=== PATIENT | female | born 2000 | race Caucasian/White ===

== ENCOUNTER 2022-08-11 16:02 | Inpatient (IN) ==
--- NOTE | 2022-08-11 16:41 | Emergency Department Note ---
Impression & Plan Depression with suicidal ideation, Suicide attempt by multiple drug overdose ED Provider Note Provider: Candido Jules MD DATE OF SERVICE: 08/11/2022 CHIEF COMPLAINT: Depression, suicidal thoughts HISTORY OF PRESENT ILLNESS: Patient is a 21-year-old presenting here today reporting worsening depression over the last week or 2. Presents with friend/roommate. Patient reports that they experienced suicidal thoughts and normally can talk to themselves down from this but did try 2 nights ago to take too many pills in an overdose attempt to end her life. Does have a history of burning himself in the summer. No history of inpatient psychiatric care in the past but has a counselor as well as psychiatrist that he sees virtually. 2 nights ago evidently took a bunch of medicines they had at home including [id number] potassium tablets that did cause some heartburn and abdominal discomfort. Took some alcohol with this. Denies any drug use otherwise. Roommate/friend found out and secured any other medicines as well as knives and since safety proved by their report the department. Given this episode however convinced the patient to come here for further evaluation and seek inpatient treatment. Patient reports that she is a history of dissociative disorders, PTSD, and anxiety among others. Has been taking her home medications including aripiprazole and duloxetine. Has a history of a cardiac ablation in the past for SVT. PAST MEDICAL HISTORY: As noted above MEDICATIONS: Reviewed home medications SOCIAL HISTORY: [employer] student, occasional alcohol use, denies drug use, smoker PHYSICAL EXAM: GENERAL: alert and oriented in no acute distress on bed tapping left foot appearing a bit anxious Head: normocephalic and atraumatic EYES: No injection, discharge or icterus. NECK: Trachea midline LUNGS: Airway patent. No retractions. Breath sounds clear with good air entry bilaterally. HEART: Regular rate and rhythm. No chest wall tenderness SKIN: Acyanotic, warm, dry EXTREMITIES: Without swelling, tenderness or deformity NEUROLOGICAL: No focal deficits. No aphasia. No facial droop or slurred speech. Ambulatory. EK bpm normal sinus rhythm with sinus arrhythmia. No PVC or PAC. No acute ST segment elevation or depression with a QTC of 394. Patient's laboratory studies reviewed. Differential includes Mood disorder, infection, hypoglycemia, electrolyte abnormalities, cardiac sources, intracerebral event, toxicologic, trauma, neurologic, as well as other pathologies. IMPRESSION/MEDICAL DECISION MAKING: Patient with mental health history but patient now with worsening depression anxiety and evidently tried an overdose 2 nights ago. No inpatient mental health history reported by the patient. She does not want us to contact family at this point. Took some [id number] potassium as well as other pills and alcohol 2 nights ago. Denies significant complaints at this time but is anxious. We will complete basic blood work and toxicology levels and EKG but doubt any significant toxidrome at this juncture given the amount of time. Blood work is reassuring without evidence of potassium elevation or interval abnormalities of significance on EKG. No salicylate, aspirin, or alcohol elevation noted either. Given this active attempted overdose and suicidal thoughts do believe she needs inpatient treatment and discussed this with the patient. Seen with case management here. Referrals to be made. Given a nicotine patch. Being evaluated by [facility] for possible inpatient psychiatric care. Patient voluntary for inpatient care at this time. DIAGNOSIS: Depression with suicidal ideation, overdose DISPOSITION: Signed out at the end of my shift pending inpatient placement. Past Med/Surg History Social History Smoking Status: Never smoker Preferred Language: Arabic Feels Safe at Home: Yes Gender Identity: Female Allergies Allergies Allergy/AdvReac Type Severity Reaction Status Date / Time bee venom protein (honey bee) Allergy Intermediate HIVES, Verified 02/27/22 01:56 EXTRA SWELLING AT SITES GRASS Allergy Intermediate Hives Uncoded 02/27/22 01:56 SEAFOOD Allergy Intermediate DIZZINESS, Uncoded 02/27/22 01:56 NAUSEA/VOMITING SUNSCREEN Allergy Intermediate RASH/HIVES Uncoded 02/27/22 01:56 Home Meds Home Medications Medication Instructions Recorded Confirmed aripiprazole 10 mg tablet 10 mg PO DAILY 08/11/22 08/11/22 duloxetine 30 mg capsule,delayed 30 mg PO BID 08/11/22 08/11/22 release sprinkle Results & Data (ED) Vital Signs Vital Signs - 24 hr 08/11/22 16:09 08/11/22 17:40 Temperature 36.5 C Temperature Source Temporal Artery Scan Pulse Rate 98 H Pulse Rate [Left Finger] 72 Pulse Rhythm [Left Finger] Regular Pulse Strength [Left Finger] Normal Respiratory Rate 16 18 Respiratory Effort / Characteristics Non-Labored Non-Labored Spontaneous Respiratory Depth Normal Normal Respiratory Pattern Regular Blood Pressure 116/62 Blood Pressure [Left Arm] 112/76 Blood Pressure Mean 80 Blood Pressure Mean [Left Arm] 88 Blood Pressure Position [Left Arm] Sitting Pulse Oximetry 100 98 Oxygen Delivery Method Room Air Room Air Sepsis Recent Fever Within 48 Hours No Sepsis New/Unexplained Change in Mental Status No Sepsis Action Taken by Nursing No Action Required Laboratory Data 08/11/22 16:45 08/11/22 16:45 Lab Results 08/11/22 08/11/22 08/11/22 Range/Units 16:45 16:45 16:45 WBC 5.07 (4.8-10.8) K/ul RBC 4.57 (3.93-5.22) M/uL Hgb 13.7 (12.0-16.0) g/dl Hct 40.2 (34.1-44.9) % MCV 88.0 (80.0-100.0) fL MCH 30.0 (25.0-34.0) pg MCHC 34.1 (32.0-36.0) g/dL RDW Std Deviation 39.2 (36.4-46.3) fL RDW Coeff of Erica 12.2 (11.5-14.5) % Plt Count 276 (130-400) K/uL MPV 9.6 (9.4-12.3) fL Immature Gran % (Auto) 0.2 % Neut % (Auto) 62.3 % Lymph % (Auto) 29.4 % [place] % (Auto) 6.5 % Eos % (Auto) 1.2 % Baso % (Auto) 0.4 % Neut # (Auto) 3.16 (1.4-6.5) K/uL Lymph # (Auto) 1.49 (1.2-3.4) K/uL [place] # (Auto) 0.33 (0.24-0.82) K/uL Eos # (Auto) 0.06 (0-0.50) K/uL Baso # (Auto) 0.02 (0-0.2) K/uL Immature Gran # (Auto) 0.01 (0.00-0.02) K/uL Sodium 138 (136-145) mmol/L Potassium 3.8 (3.5-5.1) mmol/L Chloride 104 (98-107) mmol/L Carbon Dioxide 26 (21-32) mmol/L Anion Gap 8 (3-11) BUN 11 (6-23) mg/dl Creatinine 0.67 (0.6-1.2) mg/dl Est Cr Clr Drug Dosing 124.3 ml/min Est GFR ( Amer) 146.7 ml/min Est GFR (Non-Af Amer) 126.5 ml/min BUN/Creatinine Ratio 16.4 (10-20) Glucose 102 H (70-99(Fasting)) mg/dl Calcium 9.4 (8.5-10.1) mg/dl Total Bilirubin 0.4 (0.2-1.0) mg/dl AST 13 (13-39) U/L ALT 7 (7-52) U/L Alkaline Phosphatase 67 (34-104) U/L Total Protein 7.5 (6.0-8.3) gm/dl Albumin 4.8 (3.4-5.0) gm/dl Globulin 2.7 (2.5-4.0) gm/dl Albumin/Globulin Ratio 1.8 (0.9-2) TSH 1.580 (0.300-4.500) uIu/ml HCG, Qual (Negative) Urine Color Urine Appearance (Clear) Urine pH (4.5-7.5) Ur Specific [place] (1.000-1.030) Urine Protein (Negative) Urine Glucose (UA) (Negative) Urine Ketones (Negative) Urine Blood (Negative) Urine Nitrite (Negative) Urine Bilirubin (Negative) Urine Urobilinogen (Negative) Ur Leukocyte Esterase (Negative) Urine WBC (Auto) (0-5) /hpf Urine RBC (Auto) (0-4) /hpf U Hyaline Cast (Auto) (0-5) /lpf U Epithel Cells (Auto) (0-5) /lpf Urine Bacteria (Auto) (Negative) Salicylates (3.0-30) mg/dl Urine Opiates Screen (Neg) Ur Methadone, Qual (Neg) Acetaminophen (10-30) ug/ml Urine Barbiturates (Neg) Ur Phencyclidine (PCP) (Neg) U Amphetamin/Meth Scrn (Neg) MDMA (Ecstasy) Screen (Neg) U Benzodiazepines Scrn (Neg) Ur Cocaine Metabolite (Neg) U Marijuana (THC) Screen (Neg) Ethyl Alcohol mg/dL (<10.0) mg/dl SARS-CoV-2, RNA, NAAT (NEGATIVE) 08/11/22 08/11/22 08/11/22 Range/Units 16:45 16:45 16:45 WBC (4.8-10.8) K/ul RBC (3.93-5.22) M/uL Hgb (12.0-16.0) g/dl Hct (34.1-44.9) % MCV (80.0-100.0) fL MCH (25.0-34.0) pg MCHC (32.0-36.0) g/dL RDW Std Deviation (36.4-46.3) fL RDW Coeff of Erica (11.5-14.5) % Plt Count (130-400) K/uL MPV (9.4-12.3) fL Immature Gran % (Auto) % Neut % (Auto) % Lymph % (Auto) % [place] % (Auto) % Eos % (Auto) % Baso % (Auto) % Neut # (Auto) (1.4-6.5) K/uL Lymph # (Auto) (1.2-3.4) K/uL [place] # (Auto) (0.24-0.82) K/uL Eos # (Auto) (0-0.50) K/uL Baso # (Auto) (0-0.2) K/uL Immature Gran # (Auto) (0.00-0.02) K/uL Sodium (136-145) mmol/L Potassium (3.5-5.1) mmol/L Chloride (98-107) mmol/L Carbon Dioxide (21-32) mmol/L Anion Gap (3-11) BUN (6-23) mg/dl Creatinine (0.6-1.2) mg/dl Est Cr Clr Drug Dosing ml/min Est GFR ( Amer) ml/min Est GFR (Non-Af Amer) ml/min BUN/Creatinine Ratio (10-20) Glucose (70-99(Fasting)) mg/dl Calcium (8.5-10.1) mg/dl Total Bilirubin (0.2-1.0) mg/dl AST (13-39) U/L ALT (7-52) U/L Alkaline Phosphatase (34-104) U/L Total Protein (6.0-8.3) gm/dl Albumin (3.4-5.0) gm/dl Globulin (2.5-4.0) gm/dl Albumin/Globulin Ratio (0.9-2) TSH (0.300-4.500) uIu/ml HCG, Qual Negative (Negative) Urine Color Urine Appearance (Clear) Urine pH (4.5-7.5) Ur Specific [place] (1.000-1.030) Urine Protein (Negative) Urine Glucose (UA) (Negative) Urine Ketones (Negative) Urine Blood (Negative) Urine Nitrite (Negative) Urine Bilirubin (Negative) Urine Urobilinogen (Negative) Ur Leukocyte Esterase (Negative) Urine WBC (Auto) (0-5) /hpf Urine RBC (Auto) (0-4) /hpf U Hyaline Cast (Auto) (0-5) /lpf U Epithel Cells (Auto) (0-5) /lpf Urine Bacteria (Auto) (Negative) Salicylates < 3.0 L (3.0-30) mg/dl Urine Opiates Screen (Neg) Ur Methadone, Qual (Neg) Acetaminophen < 3 L (10-30) ug/ml Urine Barbiturates (Neg) Ur Phencyclidine (PCP) (Neg) U Amphetamin/Meth Scrn (Neg) MDMA (Ecstasy) Screen (Neg) U Benzodiazepines Scrn (Neg) Ur Cocaine Metabolite (Neg) U Marijuana (THC) Screen (Neg) Ethyl Alcohol mg/dL < 10.0 (<10.0) mg/dl SARS-CoV-2, RNA, NAAT (NEGATIVE) 08/11/22 08/11/22 08/11/22 Range/Units 16:45 17:27 17:27 WBC (4.8-10.8) K/ul RBC (3.93-5.22) M/uL Hgb (12.0-16.0) g/dl Hct (34.1-44.9) % MCV (80.0-100.0) fL MCH (25.0-34.0) pg MCHC (32.0-36.0) g/dL RDW Std Deviation (36.4-46.3) fL RDW Coeff of Erica (11.5-14.5) % Plt Count (130-400) K/uL MPV (9.4-12.3) fL Immature Gran % (Auto) % Neut % (Auto) % Lymph % (Auto) % [place] % (Auto) % Eos % (Auto) % Baso % (Auto) % Neut # (Auto) (1.4-6.5) K/uL Lymph # (Auto) (1.2-3.4) K/uL [place] # (Auto) (0.24-0.82) K/uL Eos # (Auto) (0-0.50) K/uL Baso # (Auto) (0-0.2) K/uL Immature Gran # (Auto) (0.00-0.02) K/uL Sodium (136-145) mmol/L Potassium (3.5-5.1) mmol/L Chloride (98-107) mmol/L Carbon Dioxide (21-32) mmol/L Anion Gap (3-11) BUN (6-23) mg/dl Creatinine (0.6-1.2) mg/dl Est Cr Clr Drug Dosing ml/min Est GFR ( Amer) ml/min Est GFR (Non-Af Amer) ml/min BUN/Creatinine Ratio (10-20) Glucose (70-99(Fasting)) mg/dl Calcium (8.5-10.1) mg/dl Total Bilirubin (0.2-1.0) mg/dl AST (13-39) U/L ALT (7-52) U/L Alkaline Phosphatase (34-104) U/L Total Protein (6.0-8.3) gm/dl Albumin (3.4-5.0) gm/dl Globulin (2.5-4.0) gm/dl Albumin/Globulin Ratio (0.9-2) TSH (0.300-4.500) uIu/ml HCG, Qual (Negative) Urine Color Yellow Urine Appearance Clear (Clear) Urine pH 6.0 (4.5-7.5) Ur Specific [place] 1.012 (1.000-1.030) Urine Protein Negative (Negative) Urine Glucose (UA) Negative (Negative) Urine Ketones Negative (Negative) Urine Blood 3+ H (Negative) Urine Nitrite Negative (Negative) Urine Bilirubin Negative (Negative) Urine Urobilinogen Negative (Negative) Ur Leukocyte Esterase Trace H (Negative) Urine WBC (Auto) 1-5 (0-5) /hpf Urine RBC (Auto) 0-4 (0-4) /hpf U Hyaline Cast (Auto) 0 (0-5) /lpf U Epithel Cells (Auto) 20-30 H (0-5) /lpf Urine Bacteria (Auto) Negative (Negative) Salicylates (3.0-30) mg/dl Urine Opiates Screen Neg (Neg) Ur Methadone, Qual Neg (Neg) Acetaminophen (10-30) ug/ml Urine Barbiturates Neg (Neg) Ur Phencyclidine (PCP) Neg (Neg) U Amphetamin/Meth Scrn Neg (Neg) MDMA (Ecstasy) Screen Neg (Neg) U Benzodiazepines Scrn Neg (Neg) Ur Cocaine Metabolite Neg (Neg) U Marijuana (THC) Screen Neg (Neg) Ethyl Alcohol mg/dL (<10.0) mg/dl SARS-CoV-2, RNA, NAAT NEGATIVE (NEGATIVE) Administered Medications Nicotine (Nicotine 21 Mg/24 Hr Tdsy) 21 mg TD QAM MARILEE Stop: 09/10/22 18:59 Last Admin: 08/11/22 18:50 Dose: 21 mg Documented By: ABISAI Discharge Plan Visit Data Chief Complaint: Mental Health Evaluation Stated Complaint: MENTAL HEALTH EVALUATION ED Provider: Candido Jules Discharge Problem: Depression with suicidal ideation, Suicide attempt by multiple drug overdose Patient Disposition: Still a Patient Forms Stand Alone Forms: [facility], Suicide Prevention Resources Prescriptions Prescriptions: No Action aripiprazole 10 mg Tablet 10 mg PO DAILY duloxetine 30 mg Capsule, Delayed Rel Sprinkle 30 mg PO BID Referrals Referrals: PCP,NO [Primary Care Provider] - : Suicide attempt by multiple drug overdose Qualifiers: Encounter type: initial encounter Qualified Code(s): T50.912A - Poisoning by multiple unspecified drugs, medicaments and biological substances, intentional self-harm, initial encounter
[2022-08-11 17:00] LABS: Basophils # (auto) 0.02 K/uL (0-0.2); Basophils % (auto) 0.4 %; Eosinophils # (auto) 0.06 K/uL (0-0.50); Eosinophils % (auto) 1.2 %; Hematocrit (blood only) 40.2 % (34.1-44.9); Hemoglobin 13.7 g/dl (12.0-16.0); Immature Granulocytes # (auto) 0.01 K/uL (0.00-0.02); Immature Granulocytes % (auto) 0.2 %; Lymphocytes # (auto) 1.49 K/uL (1.2-3.4); Lymphocytes % (auto) 29.4 %; Mean Corpuscular Hgb Conc 34.1 g/dL (32.0-36.0); Mean Platelet Volume 9.6 fL (9.4-12.3); Monocytes # (auto) 0.33 K/uL (0.24-0.82); Monocytes % (auto) 6.5 %; Neutrophils # (auto) 3.16 K/uL (1.4-6.5); Neutrophils % (auto) 62.3 %; Platelet Count 276 K/uL (130-400); RDW Coefficient of Variation 12.2 % (11.5-14.5); RDW Standard Deviation 39.2 fL (36.4-46.3); Red Blood Count 4.57 M/uL (3.93-5.22); White Blood Count 5.07 K/ul (4.8-10.8)
[2022-08-11 17:23] LABS: Albumin Level 4.8 gm/dl (3.4-5.0); Bilirubin,Total 0.4 mg/dl (0.2-1.0); Calcium 9.4 mg/dl (8.5-10.1); Potassium 3.8 mmol/L (3.5-5.1)
[2022-08-11 17:29] LABS: Acetaminophen < 3 ug/ml (10-30); Albumin Globulin Ratio 1.8 (0.9-2); BUN Creatinine Ratio 16.4 (10-20); Creatinine Clr Calc Pharmacy 124.3 ml/min; Est GFR (African American) 146.7 ml/min; Est GFR (Non-African American) 126.5 ml/min; Globulin 2.7 gm/dl (2.5-4.0); Salicylate < 3.0 mg/dl (3.0-30); Total Protein 7.5 gm/dl (6.0-8.3)
[2022-08-11 17:45] LABS: Pregnancy Test, Serum Negative (Negative)
[2022-08-11 17:49] LABS: Appearance Urine Clear (Clear); Bacteria Urine Automated Negative (Negative); Bilirubin Urine Negative (Negative); Blood Urine 3+ (Negative); Cast Urine Automated 0 /lpf (0-5); Color Urine Yellow; Epithelial Cell Urine Auto 20-30 /lpf (0-5); Glucose Urine UA Negative (Negative); Ketones Urine Negative (Negative); Leukocyte Esterase Urine Trace (Negative); Nitrite Urine Negative (Negative); Protein Urine Negative (Negative); RBC Urine Automated 0-4 /hpf (0-4); Specific Gravity Urine 1.012 (1.000-1.030); Urobilinogen Urine Negative (Negative)
[2022-08-11 18:38] LABS: Amphetamines+Metham, Urine Neg (Neg); Barbiturates, Urine Neg (Neg); Benzodiazepine, Urine Neg (Neg); Cocaine, Urine Neg (Neg); MDMA (Ecstacy), Urine Neg (Neg); Methadone, Urine Neg (Neg); Opiate, Urine Neg (Neg); Phencyclidine, Urine Neg (Neg)
[2022-08-11] MEDS ORDERED: NICOTINE 21 MG/24 HR TDSY TD SCH (19:00)
--- NOTE | 2022-08-11 19:47 | Emergency Department Note ---
ED Visit Note I assumed care at the change of shift. The patient had presented voluntarily for a psychiatric evaluation. She was found to be medically clear. She admitted to suicidal ideation. She had attempted taking a handful of pills 2 days ago. She was concerned about her behavior and felt she would need a hospital stay. Case management was consulted. A bed search was underway. The patient was accepted by our psychiatric floor, [facility]. She is being admitted voluntarily. . : Suicide attempt by multiple drug overdose Qualifiers: Encounter type: initial encounter Qualified Code(s): T50.912A - Poisoning by multiple unspecified drugs, medicaments and biological substances, intentional self-harm, initial encounter
[2022-08-11] MEDS ORDERED: NICOTINE POLACRILEX 2 MG GUM MT PRN (19:58)
[2022-08-11] MEDS ORDERED: SODIUM CHLORIDE 0.65% NA SOLN 45 ML (OCEAN) PRN (19:58)
[2022-08-11] MEDS ORDERED: ALUMINUM/MAGNESIUM SUSP 30 ML UDC PO PRN (19:58)
[2022-08-11] MEDS ORDERED: MAGNESIUM HYDROXIDE SUSP 30 ML UDC PO PRN (19:58)
[2022-08-11] MEDS ORDERED: hydrOXYzine HCl 25 MG TAB PO PRN ×2 (19:58)
[2022-08-11] MEDS ORDERED: ACETAMINOPHEN 325 MG TAB PO PRN (19:58)
[2022-08-11] MEDS ORDERED: BISMUTH SUBSALICYLATE LIQD 236 ML PO PRN (19:58)
[2022-08-11] MEDS ORDERED: NON-FORMULARY MEDICATION (Duloxetine 30 mg Capsule, Delayed Rel Sprinkle) PO SCH (21:00)
[2022-08-11] MEDS ORDERED: DULoxetine HCL 30 MG CAP PO SCH (21:00)
[2022-08-11] MEDS: DULoxetine HCL 20 MG CAP PO SCH (21:49)
[2022-08-12] MEDS: ARIPiprazole 10 MG TAB PO SCH (08:45)
[2022-08-12] MEDS ORDERED: ARIPiprazole 10 MG TAB PO SCH (09:00)
[2022-08-12] MEDS ORDERED: NICOTINE 21 MG/24 HR TDSY TD SCH (09:00)
[2022-08-12] MEDS ORDERED: MULTIVITAMIN TAB PO SCH (10:45)
--- NOTE | 2022-08-12 15:20 | Electrocardiogram Report ---
Test Reason : Blood Pressure : / mmHG Vent. Rate : 069 BPM Atrial Rate : 069 BPM P-R Int : 130 ms QRS Dur : 084 ms QT Int : 368 ms P-R-T Axes : 064 074 052 degrees QTc Int : 394 ms Normal sinus rhythm with sinus arrhythmia Normal ECG When compared with ECG of 27-FEB-2022 00:29, Vent. rate has decreased BY 44 BPM Non-specific change in ST segment in Inferior leads T wave inversion no longer evident in Inferior leads T wave inversion no longer evident in Anterior leads Confirmed by Chema Parr ([id number]) on 08/12/2022 3:19:43 PM Referred By: REFERRED SELF Confirmed By:Chema Parr
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
[2022-08-12] MEDS ORDERED: CEROVITE ADV FORMULA TAB PO SCH (15:45)
[2022-08-12] MEDS: DULoxetine HCL 20 MG CAP PO SCH (21:39)
[2022-08-12] MEDS ORDERED: MELATONIN 3 MG TAB PO SCH (22:00)
[2022-08-13] MEDS ORDERED: NICOTINE POLACRILEX 2 MG GUM MT PRN (07:32)
[2022-08-13] MEDS ORDERED: CEROVITE ADV FORMULA TAB PO SCH (09:00)
[2022-08-13] MEDS: ARIPiprazole 10 MG TAB PO SCH (09:09)
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
== END 2022-08-13 14:40 | disposition home or self-care (01) | DRG 881 ==
LOC: ED 16:02 → 3S 19:50